=== PATIENT | male | born 1985 | race Native Hawaiian/Other Pacific Islander ===

== ENCOUNTER 2017-08-03 07:04 | Emergency (ER) | payer MEDICARE ==
[2017-08-03] MEDS ORDERED: SODIUM CHLORIDE 0.9% 1,000 ML IV ONE (07:16)
[2017-08-03] MEDS ORDERED: KETOROLAC 60 MG/2 ML VIAL IVP STA (07:16)
[2017-08-03] MEDS ORDERED: KETOROLAC 30 MG/ML VIAL ONE (07:28)
[2017-08-03 07:37] LABS: CALCIUM 9.5 mg/dL (8.5-10.3); CREATININE 1.2 mg/dL (0.6-1.2); POTASSIUM 3.7 mmol/L (3.5-5.0)
--- NOTE | 2017-08-03 07:43 | ED Physician Documentation ---
History of Present Illness - Stated complaint Stated Complaint: LEFT SIDE PX - Chief complaint Chief Complaint: Abd Pain - Additonal information Additional information: hx from pt 32 y/o male to ED to L upper lat abd pain and nausea and brown urine hx kidney stones but this feels different no fever no vomit or diarrhea no pain no prior surgery Review of Systems Constitutional: denies: Fever, Chills Cardiac: denies: Chest pain / pressure, Palpitations Respiratory: denies: Dyspnea, Cough GI: reports: Abdominal Pain, Nausea. denies: Vomiting, Diarrhea : reports: Hematuria (brown). denies: Dysuria Musculoskeletal: denies: Neck pain, Back pain Endocrine: denies: Easy bruising / bleeding Immunocompromised: denies: Immunocompromised PD PAST MEDICAL HISTORY - Past Medical History Past Medical History: Yes Endocrine/Autoimmune: Type 2 diabetes : Kidney stones Musculoskeletal: Gout - Past Surgical History Past Surgical History: No - Present Medications Home Medications: Ambulatory Orders Medication Instructions Recorded Confirmed Ibuprofen [Motrin] 400 mg PO Q6H PRN #30 tablet 08/03/17 Ondansetron Odt [Zofran] 4 mg TL Q6H PRN #10 tablet 08/03/17 Oxycodone HCl/Acetaminophen 1 each PO Q6HR PRN #15 tablet 08/03/17 [Percocet 5-325 mg Tablet] Tamsulosin [Flomax] 0.4 mg PO DAILY #7 capsule 08/03/17 - Allergies Allergies/Adverse Reactions: Allergies Allergy/AdvReac Type Severity Reaction Status Date / Time No Known Drug Allergies Allergy Verified 08/03/17 07:07 - Social History Does the pt smoke?: Yes Smoking Status: Current every day smoker Does the pt drink ETOH?: Yes Does the pt have substance abuse?: Yes Substance Use and Type: Marijuana - Immunizations Immunizations are current?: No Immunizations: TDAP >10years/unknown - POLST Patient has POLST: No PD ED PE NORMAL - Vitals Vital signs reviewed: Yes - General General: Alert and oriented X 3 - HEENT HEENT: PERRL - Neck Neck: Supple, no meningeal sign - Cardiac Cardiac: RRR - Respiratory Respiratory: No respiratory distress, Clear bilaterally - Abdomen Abdomen: Soft, Other (pain but no sig TTP lateral left abd s rebound or gaurding or distention, no flank pain) - Male Male : Deferred (denies pain) - Derm Derm: Normal color - Neuro Neuro: Alert and oriented X 3 Results - Vitals Vitals: Vital Signs - 24 hr 08/03/17 08/03/17 07:08 08:45 Temperature 36.2 C L 36.1 C L Heart Rate 74 67 Respiratory 14 15 Rate Blood Pressure 154/96 H 129/83 H O2 Saturation 100 98 Oxygen O2 Source Room air - Labs Labs: Laboratory Tests 08/03/17 08/03/17 06:39 09:02 Sodium 135 Potassium 3.7 Chloride 100 L Carbon Dioxide 23 Anion Gap 12.0 BUN 16 Creatinine 1.2 Estimated GFR (MDRD) 69 L Glucose 215 H Calcium 9.5 Urine Color DARK YELLOW Urine Clarity CLOUDY Urine pH 6.0 Ur Specific [place] 1.025 Urine Protein NEGATIVE Urine Glucose (UA) 100 H Urine Ketones TRACE Urine Occult Blood LARGE H Urine Nitrite NEGATIVE Urine Bilirubin NEGATIVE Urine Urobilinogen 0.2 (NORMAL) Ur Leukocyte Esterase NEGATIVE Urine RBC TNTC H Urine WBC 4-5 Ur Squamous Epith Cells RARE Squamous Urine Bacteria Few Ur Microscopic Review INDICATED Urine Culture Comments NOT INDICATED - Rads (name of study) CT AP Radiology: See rad report (obstructing left 5X4mm calculusu causing L hydro and perinephric edema, also more renal stones, and 2 X 1.5 mm stone in the bladder near R UVJ) PD MEDICAL DECISION MAKING - ED course ED course: rx percocet for renal colic - no [facility] JEOVANY flags Departure - Departure Disposition: 01 Home, Self Care Clinical Impression: Renal colic Condition: Good Instructions: ED Stone Renal W Colic Follow-Up: [facility] [Provider Group] Prescriptions: Oxycodone HCl/Acetaminophen [Percocet 5-325 mg Tablet] 1 each PO Q6HR PRN #15 tablet PRN Reason: Severe Pain Ibuprofen [Motrin] 400 mg PO Q6H PRN #30 tablet PRN Reason: Pain Ondansetron Odt [Zofran] 4 mg TL Q6H PRN #10 tablet PRN Reason: Nausea / Vomiting Tamsulosin [Flomax] 0.4 mg PO DAILY #7 capsule Comments: You have a 5 mm left sided kidney stone that is passing. This stone should be able to pass without surgery Take motrin for mild to moderate pain, percocet for severe pain, zofran for nausea vomiting, and flomax to help relax the ureter so the stone can pass Filter your urine so you will know when the stone has passed - you already have one stone in the bladder so you should pass two stones. If the stone does not pass in a few days, please call the urologist at [facility] to schedule follow up Return to the ER if worse Forms: Activity restrictions
[2017-08-03 09:12] LABS: BILIRUBIN,URINE NEGATIVE (NEGATIVE)
[2017-08-03 09:18] LABS: UA w/ MICROSCOPIC CHARGE YES
--- NOTE | 2017-08-03 09:18 | CT Preliminary Report ---
Exam: CT ABDOMEN/PELVIS W/O IMPRESSION: 1. Obstructing left UVJ 5 x 4 mm calculus causing left hydronephrosis and left perinephric edema. 2. Bilateral nonobstructing renal calculi. 3. 2 x 1.5 mm calculus in the right posterior inferior urinary bladder adjacent to the right UVJ. 4. No bowel obstruction. No diverticulitis. [facility] SITE ID: [id number]
[2017-08-03 09:24] LABS: UR CULTURE IF IND NOT INDICATED
[2017-08-03] MEDS ORDERED: oxyCOD/ACETAMIN 5 MG/325 MG TABLET PO STA (09:43)
[2017-08-03] MEDS ORDERED: TAMSULOSIN 0.4 MG CAPSULE PO STA (09:44)
[2017-08-03 09:45] VITALS: BP 130/77
--- NOTE | 2017-08-03 09:50 | CT Report ---
EXAM: CT ABDOMEN AND PELVIS EXAM DATE: 08/03/2017 08:38 AM. CLINICAL HISTORY: Left lateral abdominal pain and hematuria. COMPARISONS: None. TECHNIQUE: Routine helical CT imaging was performed through the abdomen and pelvis. IV contrast: None . Enteric contrast: No. Reconstructions: Coronal and sagittal. In accordance with CT protocol optimization, one or more of the following dose reduction techniques w ere utilized for this exam: automated exposure control, adjustment of mA and/or KV based on patient s ize, or use of iterative reconstructive technique. FINDINGS: Lung Bases: Minimal subpleural bibasilar scar/atelectasis. Included portions of the heart are unremar kable. Liver: Normal. No masses. Gallbladder/Bile Ducts: Unremarkable. Spleen: Normal. Pancreas: Normal. Adrenal Glands: Normal. Kidneys: Left perinephric edema and left hydronephrosis is seen to the left UVJ where there is an obs tructing 5 x 4 mm calculus. Smaller nonobstructing calculi are seen in the mid upper pole of the left kidney. In the upper pole of the right kidney, midpole and lower pole of the right kidney are 1-2 mm nonobstructing calculi. 2 x 1.5 mm calculus is seen by the right UVJ in the urinary bladder. No sign ificant right hydronephrosis. Peritoneal Cavity/Bowel: Small bowel is unremarkable. No bowel obstruction. Small to moderate volume of stool is seen in the colon. Small to moderate volume of stool is seen in the colon. NO free air. N o free fluid. No enlarged retroperitoneal or mesenteric lymph nodes. Appendix is not distinctly visua lized. No right lower quadrant or pericecal inflammatory changes. Pelvic Organs: Right 2 x 1.5 mm calculus is seen in the bladder near the right UVJ. No pelvic adenopa thy. No pelvic free fluid. Vasculature: No aneurysms or other significant abnormality. Bones: Degeneratived changes of the thoracic and lumbar spine and both hip joints. No acute osseous a bnormalities. Other: None. IMPRESSION: 1. Obstructing left UVJ 5 x 4 mm calculus causing left hydronephrosis and left perinephric edema. 2. Bilateral nonobstructing renal calculi. 3. 2 x 1.5 mm calculus in the right posterior inferior urinary bladder adjacent most likely adjacent to the right UVJ rather than obstructing and at the right UVJ. No right hydronephrosis. 4. No bowel obstruction. No diverticulitis. [facility] Referring Provider Line: [phone] SITE ID: [id number]
[2017-08-03] MEDS ORDERED: oxyCOD/ACETAMIN 5 MG/325 MG TABLET PO ONE (09:58)
[2017-08-03] MEDS ORDERED: TAMSULOSIN 0.4 MG CAPSULE ONE (09:59)
== END 2017-08-03 10:07 | disposition home or self-care (01) ==
LOC: ED 07:04
DX: N13.2 Hydronephrosis with renal and ureteral calculous obstruction (principal); F17.200 Nicotine dependence, unspecified, uncomplicated; E11.9 Type 2 diabetes mellitus without complications
CPT/HCPCS: 36415; 74176; 80048; 81001; 96361; 96374; 99283; 99284; A9270; 81003; 87086